=== PATIENT | male | born 1950 | race Two or more races ===

== ENCOUNTER 2018-08-27 11:07 | Outpatient (CLI) | payer OTHER | END 2018-08-27 11:15 | disposition home or self-care (01) | LOC: RAD 501 11:07 | DX: M25.561 Pain in right knee (principal) ==

== ENCOUNTER 2023-10-24 10:20 | Outpatient (CLI) | payer OTHER ==
[2023-10-24 11:20] LABS: HEMOGLOBIN 12.9 g/dL (13-16.00); MEAN CELL VOLUME 95.2 fL (80.0-100.00); MEAN CORPUSCULAR HEMOGLOBIN 32.4 pg (27.00-32.0); MEAN CORPUSCULAR HGB CONC 34.1 g/dl (32.0-36.0); PLATELET COUNT 175 K/uL (150-450); RED BLOOD COUNT 3.99 M/uL (4.00-6.00); RED CELL DISTRIBUTION WIDTH 13.4 % (11.5-14.5)
[2023-10-24 11:48] LABS: ALBUMIN 3.6 gm/dL (3.4-5.0); BILIRUBIN TOTAL 0.59 mg/dL (0.3-1.2); CALCIUM 8.6 mg/dL (8.5-10.1); CREATININE SERUM 0.81 mg/dL (0.70-1.30); GFR 93.15; GLOBULINA 2.8 G/DL (2.4-3.5); MAGNESIUM 1.8 mg/dL (1.8-2.4); POTASSIUM 4.16 mEq/L (3.5-5.1); TOTAL PROTEIN 6.4 gm/dL (6.4-8.2)
== END 2023-10-24 14:10 | disposition home or self-care (01) ==
LOC: LAB 10:20
PROVIDERS: ATTEND Orthopaedic Surgery
DX: E55.9 Vitamin D deficiency, unspecified (principal); M85.9 Disorder of bone density and structure, unspecified; E56.1 Deficiency of vitamin K; E21.3 Hyperparathyroidism, unspecified; K86.2 Cyst of pancreas